=== PATIENT | female | born 1965 | race Caucasian/White ===

== ENCOUNTER → 2019-11-06 07:24 | Outpatient (CLI) | payer OTHER, SELFPAY ==
--- NOTE | ~2019-11-06 | MM_ITS ---
EXAMINATION: MM screening mary BI w javi HISTORY: Screening mammogram, family history of breast cancer in her mother. TECHNIQUE: Craniocaudal and mediolateral oblique 3-D tomosynthesis images were obtained and synthetic 2-D images were generated. CAD analysis was submitted and interpreted. COMPARISON: 11/11/2018, 10/24/2018: 2218, 10/16/2016 BREAST PARENCHYMAL COMPOSITION: The breasts are heterogeneously dense, which may obscure small masses . FINDINGS: An asymmetry in the middle third of the inner left breast on the craniocaudal view has a st able appearance compared to multiple prior examinations, consistent with a benign finding. There is n o evidence of suspicious mass, calcification, or architectural distortion to suggest malignancy in ei ther breast. There has been no suspicious interval change. IMPRESSION: 1. No mammographic evidence of malignancy. 2. Recommend routine screening mammography in one year. BI-RADS Category 2: Benign finding(s). Reviewed, dictated and finalized at location A. ATIONS EXECUTIVE
== END ==
PROVIDERS: Visit Provider Obstetrics & Gynecology
DX: Z12.31 Encounter for screening mammogram for malignant neoplasm of breast (principal)
CPT/HCPCS: 77063; 77067

== ENCOUNTER → 2020-12-20 14:40 | Outpatient (CLI) | payer OTHER, SELFPAY ==
--- NOTE | ~2020-12-20 | MM_ITS ---
EXAMINATION: MM screening mary BI w javi HISTORY: Screening mammogram, family history of breast cancer in her mother. TECHNIQUE: Craniocaudal and mediolateral oblique 3-D tomosynthesis images were obtained and synthetic 2-D images were generated. CAD analysis was submitted and interpreted. COMPARISON: 11/06/2019, 11/11/2018, 10/24/2018, 10/22/2017 BREAST PARENCHYMAL COMPOSITION: The breasts are heterogeneously dense, which may obscure small masses . FINDINGS: There is no evidence of suspicious mass, calcification, or architectural distortion to sugg est malignancy in either breast. There has been no suspicious interval change. IMPRESSION: 1. No mammographic evidence of malignancy. 2. Recommend routine screening mammography in one year. BI-RADS Category 1: Negative Reviewed, dictated and finalized at location A.
== END ==
PROVIDERS: PCP Physician Assistant; Visit Provider Physician Assistant
DX: Z12.31 Encounter for screening mammogram for malignant neoplasm of breast (principal)
CPT/HCPCS: 77063; 77067

== ENCOUNTER → 2020-12-22 15:06 | Outpatient (CLI) | payer OTHER, SELFPAY ==
--- NOTE | ~2020-12-22 | XR_ITS ---
XR knee RT min 4V DATE: 12/22/2020 16:15 INDICATION: Right knee pain TECHNIQUE: 4 views including sunrise and standing AP and PA views COMPARISON: 01/16/2011 FINDINGS: Mild suprapatellar knee joint effusion. Superior pole patellar enthesopathy at the quadriceps tendon insertion. No fracture or dislocation, periosteal reaction or bone destruction. There is mild loss of joint space height at the medial compartment. No radiopaque intra-articular loo se body or chondrocalcinosis. IMPRESSION: Mild loss of height of medial compartment joint space Mild suprapatellar knee joint effusion Reviewed, dictated and finalized at location B.
== END ==
PROVIDERS: PCP Physician Assistant; Visit Provider Physician Assistant
DX: M25.461 Effusion, right knee (principal)
CPT/HCPCS: 73564

== ENCOUNTER → 2021-01-11 14:37 | Outpatient (CLI) | payer OTHER, SELFPAY ==
--- NOTE | ~2021-01-11 | XR_ITS ---
XR hand LT 2V DATE: 01/11/2021 14:50 INDICATION: Hand pain TECHNIQUE: AP and lateral views COMPARISON: None FINDINGS: Osteoarthritic changes are noted involving primarily the interphalangeal joints. No fracture, dislocation, periosteal reaction or bone destruction. No erosive change or chondrocalcin osis is evident. 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
--- NOTE | ~2021-01-11 | XR_ITS ---
XR hand RT 2V DATE: 01/11/2021 14:50 INDICATION: Hand pain TECHNIQUE: AP and lateral views COMPARISON: 09/17/2015 right hand FINDINGS: No fracture or dislocation, periosteal reaction or bone destruction. There are osteoarthrit ic changes of mild to moderate degree involving the interphalangeal joints. No erosive change or chondrocalcinosis. 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
== END ==
PROVIDERS: Visit Provider Internal Medicine Rheumatology
DX: M79.642 Pain in left hand (principal); M79.641 Pain in right hand; M19.042 Primary osteoarthritis, left hand; M19.041 Primary osteoarthritis, right hand
CPT/HCPCS: 73120

== ENCOUNTER 2021-02-14 13:39 | Outpatient (CLI) | payer OTHER, SELFPAY ==
--- NOTE | ~2021-02-14 | MR_ITS ---
EXAMINATION: MR lumbar spine wo con DATE: 02/14/2021 14:43 INDICATION: Low back pain. TECHNIQUE: Magnetic resonance imaging (MRI) of the lumbar spine was performed without intravenous con trast. Sequences included sagittal T2-weighted FSE, sagittal T2-weighted FS FSE, sagittal T1-weighted FSE, and axial T2-weighted FSE. COMPARISON: None FINDINGS: There is 3 mm anterolisthesis of L4 on L5 and 5 mm retrolisthesis of L5 on S1. There is mil d chronic anterior wedging of T11 and T12 vertebral bodies. There is mildly decreased disc height at L4-L5 and moderately decreased disc height at L5-S1 with endplate remodeling. There is a 7 mm cyst in left kidney. The following disc levels are specifically discussed: L1-L2: The disc does not extend beyond the endplate margin. There is moderate bilateral facet joint o steoarthritis. There is no neural foraminal stenosis. There is no central canal stenosis. L2-L3: There is a left foraminal protrusion. There is mild bilateral facet joint osteoarthritis. Ther e is mild left neural foraminal stenosis. There is no central canal stenosis. L3-L4: The disc is bulging and has an annular fissure. There is severe bilateral facet joint osteoart hritis. There is mild bilateral neural foraminal stenosis. There is mild central canal stenosis. L4-L5: The disc is bulging. There is severe bilateral facet joint osteoarthritis. There is mild bilat eral neural foraminal stenosis. There is mild central canal stenosis. L5-S1: The disc is bulging and has an annular fissure. The disc abuts the bilateral S1 nerve roots. T here is moderate bilateral facet joint osteoarthritis. There is moderate bilateral neural foraminal s tenosis. There is mild central canal stenosis. IMPRESSION: 1. Moderate lower lumbar spondylosis. Reviewed, dictated and finalized at location A.
--- NOTE | ~2021-02-14 | MR_ITS ---
EXAMINATION: MR cervical spine wo con DATE: 02/14/2021 14:42 INDICATION: Neck pain. TECHNIQUE: Magnetic resonance imaging (MRI) of the cervical spine was performed without intravenous c ontrast. Sequences included sagittal T2-weighted FSE, sagittal STIR FSE, sagittal T1-weighted FSE, ax ial MERGE, and axial T2-weighted FSE. COMPARISON: Cervical spine MRI 03/18/2008 FINDINGS: Bone alignment is normal. Vertebral body heights and intervertebral disc heights are normal . The spinal cord signal intensity is normal. The following disc levels are specifically discussed: C2-C3: The disc does not extend beyond the endplate margin. There is no uncovertebral joint osteoarth ritis. There is ankylosis of left facet joint with mild hypertrophy. There is no neural foraminal arielle nosis. There is no central canal stenosis. C3-C4: The disc does not extend beyond the endplate margin. There is mild bilateral uncovertebral roddy nt osteoarthritis. There is severe bilateral facet joint osteoarthritis. There is mild bilateral neur al foraminal stenosis. There is no central canal stenosis. C4-C5: The disc does not extend beyond the endplate margin. There is no uncovertebral joint osteoarth ritis. There is ankylosis of the facet joints with mild hypertrophy. There is no neural foraminal arielle nosis. There is no central canal stenosis. C5-C6: The disc does not extend beyond the endplate margin. There is no uncovertebral joint osteoarth ritis. There is severe bilateral facet joint osteoarthritis. There is mild bilateral neural foraminal stenosis. There is no central canal stenosis. C6-C7: The disc does not extend beyond the endplate margin. There is no uncovertebral joint osteoarth ritis. There is severe bilateral facet joint osteoarthritis. There is mild bilateral neural foraminal stenosis. There is no central canal stenosis. C7-T1: The disc does not extend beyond the endplate margin. There is no uncovertebral joint osteoarth ritis. There is severe bilateral facet joint osteoarthritis. There is mild bilateral neural foraminal stenosis. There is no central canal stenosis. IMPRESSION: 1. Mild cervical spondylosis. Reviewed, dictated and finalized at location A.
== END 2021-02-14 13:40 ==
PROVIDERS: PCP Physician Assistant; Visit Provider Internal Medicine Rheumatology
DX: M54.5 Low back pain (principal); M47.812 Spondylosis without myelopathy or radiculopathy, cervical region; M47.816 Spondylosis without myelopathy or radiculopathy, lumbar region
CPT/HCPCS: 72141; 72148

== ENCOUNTER 2021-05-14 08:19 | Emergency (ER) | payer OTHER, SELFPAY ==
--- NOTE | ~2021-05-14 | XR_ITS ---
EXAMINATION: XR knee LT 3V DATE: 05/14/2021 08:42 INDICATION: Left knee pain TECHNIQUE: Three views of the left knee were obtained. COMPARISON: None. FINDINGS: Alignment is normal. No fracture or osteochondral lesion. There is mild tricompartmental os teoarthritis characterized by tiny marginal osteophytes. No joint effusion/synovitis. Soft tissues a re unremarkable. IMPRESSION: 1. No acute osseous abnormality. Reviewed, dictated and finalized at location A.
[2021-05-14 08:22] VITALS: BP 133/102; PULSE 67; RESP 18; TEMP 37; O2SAT 100
--- NOTE | 2021-05-14 10:20 | ED.LOWEXIN ---
HPI - Extremity Injury (Lower) General Chief Complaint: Extremity Injury, Lower Stated Complaint: left knee pain Time Seen by Provider: 05/14/21 09:46 Source: patient, RN notes reviewed and old records reviewed Mode of arrival: ambulatory Limitations: no limitations History of Present Illness HPI Narrative: Patient is 56 years old white female complaining of left knee pain started yesterday at work. Patient denies any trauma or fall. Patient have history of right knee complication and chronic pain with intermittent cortisone injection. Patient works depends on long hours of standing. Patient denies any fever, chills, nausea, vomiting, shortness of breath or chest pain. Related Data Allergies Allergy/AdvReac Type Severity Reaction Status Date / Time BEE STINGS Allergy Unknown Unknown Uncoded 05/14/21 09:10 Review of Systems Review of Systems: CONSTITUTIONAL: Denies fever, chills, or sweats. EYES: Denies visual changes, redness, or discharge. ENT: Denies rhinorrhea, congestion, sore throat, or otalgia. CARDIOVASCULAR: Denies chest pain, palpitations, or edema. RESPIRATORY: Denies cough or dyspnea. GASTROINTESTINAL: Denies abdominal pain, nausea, vomiting, or diarrhea. GENITOURINARY: Denies dysuria or hematuria. SKIN: Denies rash or itching. MUSCULOSKELETAL: Denies back pain, joint pain, or myalgia. NEUROLOGIC: Denies headache, numbness, or weakness. PSYCHIATRIC: Denies anxiety or depression. PMFSH Family History Family History Sibling Family history of lupus erythematosus Mother Family history of heart disease in male family member before age 55 Father Family history of heart disease in male family member before age 55 Social History Social History Smoking status: Never smoker Alcohol intake: current Exam Narrative: General appearance: Well-developed, well-nourished Skin: Normal color Chest and respiratory: Airway patent, no respiratory distress, no accessory muscle use Heart: Regular rate/rhythm Vascular: Normal peripheral pulses, normal capillary refill. Musculoskeletal: Normal range of motion, left knee showed no swelling, no redness, no warmth, no deformity, no localized tenderness Neurologic: Alert and oriented ?3, [employer] is normal as tested, no gross motor deficit Course Course Emergency Course: Improving Vital Signs Vital signs: Vital Signs Temperature 37.0 C 05/14/21 08:22 Pulse Rate 67 05/14/21 08:22 Respiratory Rate 18 05/14/21 08:22 Blood Pressure 133/102 H 05/14/21 08:22 Pulse Oximetry 100 05/14/21 08:22 Temperature 37.0 C 05/14/21 08:22 Pulse Rate 67 05/14/21 08:22 Respiratory Rate 18 05/14/21 08:22 Blood Pressure 133/102 H 05/14/21 08:22 Pulse Oximetry 100 05/14/21 08:22 MDM - Extremity Injury (Lower) MDM Narrative Medical decision making narrative: Nontraumatic left knee pain, osteoarthritis is my concern. Differential Diagnosis Differential diagnosis: Likely other (Osteoarthritis, sprain/strain) Critical Care Time Critical Care Time Critical Care Time: No Discharge Plan Discharge Clinical Impression: Knee pain, left Patient Disposition: Home, Self-Care Condition: Stable Instructions: Antibiotic Form, Knee Pain (ED), Arthralgia (ED) Additional Instructions: Return if symptoms are worsening , call your family physician for appointment, take Tylenol as as needed for aches and pain, continue home medications., Prescriptions: New diclofenac sodium 1 % gel 2 g topical QID Qty: 100 RF: 0 Follow-up/Referrals: Anuj,MELISSA Coulter [Primary [facility]
[2021-05-14] MEDS: HYDROcodone/acetaminophen (*CRX) 5-325 MG TABLET 1 TAB PO (10:35)
[2021-05-14] MEDS: KETOROLAC (*BKC) 60 MG/2 ML VIAL IM (10:35)
[2021-05-14 11:00] VITALS: BP 132/89; PULSE 80; RESP 20; O2SAT 99
== END 2021-05-14 11:00 | disposition home or self-care (01) ==
PROVIDERS: Emergency Provider Emergency Medicine; PCP Physician Assistant
DX: M25.562 Pain in left knee (principal)
CPT/HCPCS: 73562; 96372; 99283; A9270; J1885

== ENCOUNTER → 2021-05-30 13:53 | Outpatient (CLI) | payer OTHER, SELFPAY ==
--- NOTE | ~2021-05-30 | MR_ITS ---
EXAMINATION: MR knee RT wo con DATE: 05/30/2021 14:31 INDICATION: Right knee pain TECHNIQUE: Magnetic resonance imaging (MRI) of the right knee was performed without intravenous contr ast. Sequences included coronal PD-weighted FSE, coronal PD-weighted FS FSE, sagittal T2-weighted FS E, sagittal PD-weighted FS FSE and axial PD weighted fat saturated FSE. COMPARISON: Right knee radiograph dated 12/22/2020 FINDINGS: Medial compartment: Full-thickness radial tear/avulsion at the posterior root of the medial meniscus. There is a longitud inal horizontal tear extending to near the free edge of the posterior horn and posterior body of the medial meniscus. There is marrow edema surrounding a linear low signal intensity subarticular impacti on fracture line with flattening of the overlying articular cortex at the junction of the anterior to central weightbearing medial femoral condyle which is new since prior radiographs. There is chondral ulceration and partial-thickness chondral fissuring at the anterior and central weightbearing medial femoral condyle. Additional partial thickness chondral ulceration which appears to involve greater t mccartney 50% the cartilage thickness but with smooth chondral surface and without degenerative subchondral changes at the posterior central aspect of the medial tibial plateau. Lateral compartment: Lateral meniscus is normal. Articular cartilage is normal. Patellofemoral compartment: Partial-thickness patellar chondral ulceration without degenerative subchondral changes centered joann g the apical ridge. Additional more extensive chondral ulceration involving the medial two thirds of the lateral trochlea, the trochlear groove and medial trochlea with mild underlying cortical irregula rity at the inferior aspect of the medial trochlea. Ligaments and tendons: Anterior and posterior cruciate ligaments are normal. The medial collateral ligament and fibular nicholas ateral ligament complex are normal. The extensor mechanism is normal. The visualized medial and later al hamstring tendons as well as the iliotibial band are normal. Fluid: Moderate-sized right knee joint effusion with small amount of fluid tracking along the popliteal rece ss. No loose osteochondral bodies identified. IMPRESSION: 1. Small subarticular impaction fracture with subtle flattening of the articular cortex at the anteri or weightbearing medial femoral condyle. 2. Complex medial meniscal tear including a full-thickness radial tear/avulsion at the posterior root and horizontal longitudinal tear of the posterior horn and posterior body. 3. Mild osteoarthritis with regions of moderate high-grade chondromalacia in the medial compartment a nd moderate and high-grade chondral malacia the patellofemoral compartment. 4. Moderate sized glenohumeral joint effusion. Reviewed, dictated and finalized at location A. IMPRESSION: 1. Small subarticular impaction fracture with subtle flattening of the articula r cortex at the anterior weightbearing medial femoral condyle. 2. Complex medial meniscal tear including a full-thickness radial tear/avulsion at the posterior root and horizontal longitudinal tear of the posterior horn a nd posterior body. 3. Mild osteoarthritis with regions of moderate high-grade chondromalacia in th e medial compartment and moderate and high-grade chondral malacia the patellofe moral compartment. 4. Moderate sized glenohumeral joint effusion.
== END ==
PROVIDERS: Visit Provider Orthopaedic Surgery
DX: M25.561 Pain in right knee (principal); S72.434A Nondisplaced fracture of medial condyle of right femur, initial encounter for closed fracture; S83.231A Complex tear of medial meniscus, current injury, right knee, initial encounter; M17.11 Unilateral primary osteoarthritis, right knee; M22.41 Chondromalacia patellae, right knee; M25.461 Effusion, right knee
CPT/HCPCS: 73721

== ENCOUNTER → 2022-02-06 14:21 | Outpatient (CLI) | payer OTHER, SELFPAY ==
--- NOTE | ~2022-02-06 | MR_ITS ---
EXAMINATION: MR knee LT wo con DATE: 02/06/2022 14:50 INDICATION: Left knee pain TECHNIQUE: Magnetic resonance imaging (MRI) of the left knee was performed x-ray left knee 01/19/2022 intravenous contrast. Sequences included axial PD-weighted FS FSE, coronal PD-weighted FSE and PD-laurita ghted FS FSE, sagittal PD-weighted FSE, and sagittal T2-weighted FS FSE. COMPARISON: None. FINDINGS: Medial compartment: Mild diffuse cartilage thinning. Mild osteophytosis. Apical tear of the medial meniscus at the juncti on of the body and posterior horn. Femoral and tibial subchondral sclerosis. Lateral compartment: Mild diffuse cartilage thinning. Mild osteophytosis. Meniscus intact. Patellofemoral compartment: Mild cartilage thinning. Mild osteophytosis. Extensor mechanism and retinacula are intact. Ligaments and tendons: ACL, PCL, LCL, and MCL are intact. Medial tendons, IT band, biceps femoris tendon are intact. Fluid: No significant fluid collections. Osseous/other: Marrow signal is benign and homogenous. IMPRESSION: 1. Apical tear at the junction of the body and posterior horn, medial meniscus. 2. Mild tricompartmental osteoarthritis. Reviewed, dictated and finalized at location K.
== END ==
PROVIDERS: PCP Physician Assistant; Visit Provider Orthopaedic Surgery
DX: M25.562 Pain in left knee (principal); S83.242A Other tear of medial meniscus, current injury, left knee, initial encounter; M17.12 Unilateral primary osteoarthritis, left knee
CPT/HCPCS: 73721

== ENCOUNTER 2022-06-30 00:39 | Day surgery (SDC) | payer OTHER, SELFPAY ==
[2022-06-23 14:30] VITALS: BMI 29.2
--- NOTE | 2022-06-23 14:37 | PC.NURSE ---
Report to the Outpatient Waiting Room, entrance under the green pavilion located off [facility], at time 0830 on date 06/30/22. OR Time: 1030. Time changes happen often and if your time is changed the preop area will call you the afternoon before. - You and your visitor will be asked to self-screen and do not enter if you have any COVID symptoms. - Only one visitor and NO children visitors are allowed at this time. - The patient visitor is requested to leave or wait in car when not with patient due to restrictions. - A mask is required within the hospital. Patients may have clear liquids (water, carbonated beverages, clear teas, apple juice) until 3 hours prior to surgery with a maximum of 20 ounces. - No food from midnight until time of surgery Take the following medications with a SIP of water the morning of surgery: NONE Medications to discontinue per physician: JACEK Date to take last dose: PER DR. PERALTA Please no make-up, nail israeli, hairspray, perfume, deodorant, or body powder the day of surgery. No jewelry (including any body piercings) or valuables the day of surgery, leave them at home. Please take a shower or bath the night before, or the morning of, surgery with an antibacterial soap. Wear comfortable, loose fitting clothing. - Jewelry must be removed prior to entering the operating room. Rings and piercings that are not removed may be cut off. - The hospital will not accept responsibility for valuables. - Please leave all valuables, including medications, at home the day of surgery. If you are going home after surgery, a licensed bicycle taxi driver must drive you home. - NO public transportation without another adult. - We recommend that an adult stay with you for 24 hours following discharge. - We also recommend that you do not drive, make important decision, drink alcoholic beverages, or take any drugs that were not prescribed by your health care provider for at least 24 hours after your discharge time. Follow any additional instructions given to you from your surgeon. If you or anyone in your household have experienced Covid symptoms in the past week, please notify your surgeon or the nurse liaison at the phone number below for possible testing. Telephone instructions given to PT - JAMA KAHN and asked if any additional questions and then verbalized understanding. Patient advised to call surgeon office or pre surgery nurse liaison [phone] if any additional questions.
[2022-06-30] VITALS (10 sets, daily range): BP systolic 124–164; BP diastolic 69–95; PULSE 63–79; RESP 9–16; TEMP 36.8–37; O2SAT 95–100
--- NOTE | 2022-06-30 07:14 | WPDHPUPDATE1 ---
History and Physical Update Update Date/Time: 06/30/22 07:14 History and Physical has been reviewed, including an updated exam of the patient. There are NO changes in the patient's condition. Risks, benefits, and alternatives have been discussed and questions answered. Patient agrees to proceed with procedure.
[2022-06-30] MEDS: ACETAMINOPHEN 500 MG TABLET 1000 MG PO (08:39)
[2022-06-30] MEDS: CELECOXIB 200 MG CAPSULE PO (08:39)
[2022-06-30] MEDS: LACTATED RINGERS 1,000 ML 30 ML IV CONT ×2 (08:59→11:53)
--- NOTE | 2022-06-30 09:40 | WPDANESEPPF ---
Anes - Initial Pre Proc Eval Procedure: Operation Date: 06/30/22 10:30 Proposed Procedures p Left Knee Arthroscopy - Shalom Wills MD Date/Time: 06/30/22 09:40 Surgeon: Shalom Wills MD Pre Op Diagnosis: left knee medial meniscus tear Patient Data Age: 57 Gender: F Height: 1.57 m Weight: 72.2 kg Last Vital Signs Temp 37.0 C 06/30/22 08:48 Pulse 72 06/30/22 08:48 Resp 16 06/30/22 08:48 BP 153/86 H 06/30/22 08:48 Pulse Ox 100 06/30/22 08:48 O2 Del Method Room Air 06/30/22 08:48 Allergies Allergy/AdvReac Type Severity Reaction Status Date / Time No Known Allergies Allergy Verified 06/30/22 08:36 Home Medications Medication Instructions Recorded Confirmed Type naproxen sodium 220 mg tablet 220 mg PO BID PRN Pain 06/23/22 06/30/22 History (Aleve) Patient hx anesthesia problems: post op nausea/vomiting Family hx anesthesia problems: none Results Review: All pre-operative results and documents have been reviewed as part of the pre-operative evaluation. [facility] Past Medical History Medical History Left knee pain Rheumatoid arthritis Surgical History Surgical History H/O arthroscopy of knee Right H/O arthroscopy of left knee Family History Family History Sibling Family history of lupus erythematosus Mother Family history of heart disease in male family member before age 55 Father Family history of heart disease in male family member before age 55 Social History Social History Smoking status: Never smoker Alcohol intake: never Substance use: never Substance use type: does not use Living arrangements: with family Gender identity (if verbalized by the patient): Female Spiritual care concerns: No Anes - Eval Final PreProcedure Day of Procedure 06/30/22 09:40 Patient weight: overweight Heart: regular rate and rhythm Lungs: clear to auscultation Airway: Mallampati scale class II Neurological: alert and oriented Last oral intake: >/= 8 hours ASA classification: II Emergent: no Anesthetic plan: proceed Anesthesia type and monitoring: general LMA and standard monitoring Results Review: All pre-operative results and documents have been reviewed as part of the pre-operative evaluation. Informed Consent: The patient's anesthetic plan and its attendant risks and benefits were discussed with the patient/family/POA. Questions were solicited and answers provided to the satisfaction of the patient/family/POA.
[2022-06-30] MEDS: SCOPOLAMINE 1.5 MG PATCH TRANSDERM (10:36)
[2022-06-30] MEDS: ceFAZolin 2 GM/D5W 50 ML 2 GM/50 ML BAG IVPB (10:39)
[2022-06-30] MEDS: methylPREDNISolone ACETATE 80 MG/ML VIAL IM (11:35)
--- NOTE | 2022-06-30 12:12 | W.PM.PROC2 ---
Procedure Note - Detailed Date of Procedure 06/30/22 Pre-op Diagnosis left knee medial meniscus tear Post-op Diagnosis Same Procedure Performed LEFT KNEE SCOPE Surgeon Shalom Wills MD Anesthesia General Description of Procedure PATIENT WAS TAKEN TO THE OR. LEFT LEG WAS PREPPED AND DRAPED STERILE. TROCARS WERE PLACED IN THE USUAL FASHION. CAMERA WAS INTRODUCED. THERE WAS SEVERE CHONDROMALACIA TO THE TROCHLEA AND PATELLA. THERE WAS A LOT OF SYNOVITIS IN ALL COMPARTMENTS. THE MEDIAL COMPARTMENT SHOWED CHONDROMALACIA TO THE MEDIAL FEMORAL CONDYLE. A SHAVER WAS USED TO PREFORM A CHONDROPLASTY. THERE WAS A COMPLEX MEDIAL MENISCUS TEAR. THE TEAR WAS RESECTED WITH A BITER AND A SHAVER DOWN TO A SMOOTH BASE. THE ACL WAS INTACT. THE LATERAL MENISCUS WAS NOT TORN. THE LAT COMPARTMENT HAD MINIMAL CHONDROMALACIA. CHONDROPLASTY WAS PREFORMED. A SYNOVECTOMY WAS PREFORMED WELL. THE PATELLO FEMORAL JOINT UNDERWENT CHONDROPLASTY. THERE WAS GRADE 3 CHONDROMALACIA IN A LARGE PART OF THE TROCHLEA AND PART OF THE PATELLA. SYNOVECTOMY WAS PREFORMED IN THE SUPERIOR MEDIAL COMPARTMENT. THE WOUNDS WERE APPROXIMATED WITH 4.0 NYLON. STERILE DRESSING WAS APPLIED. PATIENT WAS EXTUBATED. Estimated Blood Loss -5.0 Complications No immediate complications Condition Stable Disposition PACU
[2022-06-30] MEDS: ONDANSETRON INJ 4 MG/2 ML VIAL IV PUSH (13:40)
== END 2022-06-30 14:25 | disposition home or self-care (01) ==
PROVIDERS: PCP Physician Assistant; Visit Provider Orthopaedic Surgery
PROC: (CPT 29870; principal; 2022-06-30 10:30)
DX: S83.242A Other tear of medial meniscus, current injury, left knee, initial encounter (principal); G89.29 Other chronic pain; M65.9 Synovitis and tenosynovitis, unspecified; M22.42 Chondromalacia patellae, left knee
CPT/HCPCS: 29881; A9270; J0690; J1040; J1100; J2250; J2405; J2704; J3010; J7120

== ENCOUNTER 2023-09-27 01:12 | Day surgery (SDC) | payer OTHER, SELFPAY ==
[2023-09-14 13:58] VITALS: BMI 29.3
--- NOTE | 2023-09-25 12:20 | SUR.PREOP ---
Patient called regarding upcoming procedure. Reviewed preop instructions, appointment times, and procedure prep.
--- NOTE | 2023-09-27 09:50 | PM.HPGS ---
History of Present Illness History of Present Illness Consent: Risks, benefits, and alternatives have been discussed and questions answered. Patient agrees to proceed with procedure. Chief complaint: GERD Narrative: Shannen An is a 58 year old female Presents for EGD. Patient states that she has a history of acid reflux and heartburn for many years. Previously this was controlled on AcipHex taken daily. Her insurance no longer covers this. Recently she has begun to take famotidine 40mg p.o. p.r.n.. Perhaps 4 times a week. She states symptoms of acid reflux may occur during the day or at night. Occasionally food will catch in the mid substernal portion of the chest. Patient denies any weight loss or bleeding. Family history is noncontributory. Review of Systems Review of Systems: Review of systems noncontributory. [facility] Past Medical History Medical History Left knee pain Rheumatoid arthritis Surgical History Surgical History H/O arthroscopy of knee Right H/O arthroscopy of left knee Family History Family History Sibling Family history of lupus erythematosus Mother Family history of heart disease in male family member before age 55 Father Family history of heart disease in male family member before age 55 Social History Social History Smoking status: Never smoker Alcohol intake: current Alcohol use details: rare occasional Substance use: never Substance use type: does not use Living arrangements: with family Gender identity (if verbalized by the patient): Female Spiritual care concerns: No Meds Home Medications and Allergies Home Medications Medication Instructions Recorded Confirmed Type naproxen sodium 220 mg tablet 220 mg PO BID PRN Pain 06/23/22 09/14/23 History (Aleve) Allergies Allergy/AdvReac Type Severity Reaction Status Date / Time No Known Allergies Allergy Verified 09/14/23 14:10 Exam Narrative: Physical exam reveals patient to be alert. Vital signs stable. HEENT exam is unremarkable. Patient is anicteric. Lungs are clear to auscultation and percussion. Heart is without murmur or extra sounds. Abdomen bowel sounds are present soft nontender with no organomegaly. Digital external rectal exam is normal. Assessment and Plan Assessment and plan (1) GERD (gastroesophageal reflux disease): Code(s): K21.9 - Gastro-esophageal reflux disease without esophagitis Status: Acute Assessment and Plan: Patient complains of heartburn and occasional dysphagia. Symptoms most consistent with acid reflux. Plan for EGD to assess more thoroughly. She may be required dilatation if stricture is encountered. Further recommendations may be given after endoscopy.
[2023-09-27 09:56] VITALS: BP 142/83; PULSE 65; RESP 16; TEMP 36.8; O2SAT 100; BMI 29.4
[2023-09-27] MEDS: LACTATED RINGERS 1,000 ML 150 ML IV CONT (10:07)
--- NOTE | 2023-09-27 10:30 | WPDANESEPPF ---
Anes - Initial Pre Proc Eval Procedure: Operation Date: 09/27/23 11:00 Proposed Procedures p Esophagogastroduodenoscopy - Etienne Garay MD Date/Time: 09/27/23 10:30 Surgeon: Etienne Garay MD Pre Op Diagnosis: GERD Patient Data Age: 58 Gender: F Height: 1.57 m Weight: 73 kg Last Vital Signs Temp 98.2 F 09/27/23 09:56 Pulse 65 09/27/23 09:56 Resp 16 09/27/23 09:56 BP 142/83 H 09/27/23 09:56 Pulse Ox 100 09/27/23 09:56 O2 Del Method Room Air 09/27/23 09:56 Allergies Allergy/AdvReac Type Severity Reaction Status Date / Time No Known Allergies Allergy Verified 09/27/23 09:55 Home Medications Medication Instructions Recorded Confirmed Type naproxen sodium 220 mg tablet 220 mg PO BID PRN Pain 06/23/22 09/27/23 History (Aleve) Patient hx anesthesia problems: none Family hx anesthesia problems: none Results Review: All pre-operative results and documents have been reviewed as part of the pre-operative evaluation. [facility] Past Medical History Medical History Left knee pain Rheumatoid arthritis Surgical History Surgical History H/O arthroscopy of knee Right H/O arthroscopy of left knee Family History Family History Sibling Family history of lupus erythematosus Mother Family history of heart disease in male family member before age 55 Father Family history of heart disease in male family member before age 55 Social History Social History Smoking status: Never smoker Alcohol intake: current Alcohol use details: rare occasional Substance use: never Substance use type: does not use Living arrangements: with family Gender identity (if verbalized by the patient): Female Spiritual care concerns: No Anes - Eval Final PreProcedure Day of Procedure 09/27/23 10:30 Patient weight: normal Heart: regular rate and rhythm Lungs: clear to auscultation Airway: Mallampati scale class II Neurological: alert and oriented Last oral intake: >/= 8 hours ASA classification: II Emergent: no Anesthetic plan: proceed Anesthesia type and monitoring: general GIVS and standard monitoring Results Review: All pre-operative results and documents have been reviewed as part of the pre-operative evaluation. Informed Consent: The patient's anesthetic plan and its attendant risks and benefits were discussed with the patient/family/POA. Questions were solicited and answers provided to the satisfaction of the patient/family/POA.
[2023-09-27 10:58] VITALS: BP 117/74; PULSE 64; RESP 20; O2SAT 97
[2023-09-27 11:08] VITALS: BP 143/86; PULSE 56; RESP 20; O2SAT 100
[2023-09-27 11:18] VITALS: BP 133/84; PULSE 60; RESP 20; O2SAT 100
== END 2023-09-27 11:31 | disposition home or self-care (01) ==
PROVIDERS: PCP Physician Assistant; Visit Provider Internal Medicine Gastroenterology
PROC: 0DJ08ZZ Inspection of Upper Intestinal Tract, Via Natural or Artificial Opening Endoscopic (ICD-10-PCS; CPT 43235; principal; 2023-09-27 11:00)
DX: K21.00 Gastro-esophageal reflux disease with esophagitis, without bleeding (principal); Q39.4 Esophageal web; M06.9 Rheumatoid arthritis, unspecified
CPT/HCPCS: 43450; J2704; J7120

== ENCOUNTER 2023-11-15 13:49 | Outpatient (CLI) | payer OTHER, SELFPAY ==
--- NOTE | ~2023-11-15 | MM_ITS ---
EXAMINATION: MM screening mary BI w javi HISTORY: Screening mammogram, family history of breast cancer in her mother. TECHNIQUE: Craniocaudal and mediolateral oblique 3-D tomosynthesis images were obtained and synthetic 2-D images were generated. CAD analysis was submitted and interpreted. COMPARISON: 12/20/2020, 11/06/2019, 11/11/2018 BREAST PARENCHYMAL COMPOSITION:Dense: The breasts are heterogeneously dense, which may obscure small masses. FINDINGS: No suspicious mass, calcification, or architectural distortion are identified in either teofilo ast to suggest malignancy. There has been no suspicious interval change. IMPRESSION: No mammographic evidence of malignancy. Recommend routine screening mammography in one year. BI-RADS Category 1: Negative Reviewed, dictated and finalized at location . GER EVENT
== END 2023-11-15 13:50 ==
PROVIDERS: PCP Physician Assistant; Visit Provider Physician Assistant
DX: Z12.31 Encounter for screening mammogram for malignant neoplasm of breast (principal)
CPT/HCPCS: 77063; 77067

== ENCOUNTER 2025-02-19 13:59 | Outpatient (CLI) | payer OTHER, SELFPAY ==
--- NOTE | ~2025-02-19 | XR_ITS ---
HISTORY: Dorsalgia COMPARISON: None TECHNIQUE: 3 views of the thoracic spine were performed FINDINGS: No acute compression fracture is present. Bone mineralization is age-appropriate. Moderate degenerative disease with osteophyte formation, disc space narrowing and endplate changes. IMPRESSION: Degenerative disease, without acute fracture. Reviewed, dictated and finalized at location A.
--- NOTE | ~2025-02-19 | XR_ITS ---
HISTORY: Pleurodynia COMPARISON: None TECHNIQUE: 3 views of the right ribs were performed along with a frontal view of the chest FINDINGS: No acute displaced fracture is appreciated. Bone mineralization is age-appropriate. The cardiomediastinal silhouette is unremarkable. The lungs are clear. IMPRESSION: No acute displaced right-sided rib fracture. No focal infiltrate or effusion. Reviewed, dictated and finalized at location A.
== END 2025-02-19 14:00 | disposition home or self-care (01) ==
LOC: MICIMG 14:03
PROVIDERS: PCP Physician Assistant; Visit Provider Physician Assistant
DX: M51.34 Other intervertebral disc degeneration, thoracic region (principal); R07.81 Pleurodynia; M54.9 Dorsalgia, unspecified
CPT/HCPCS: 71100; 72072

== ENCOUNTER 2025-03-16 15:45 | Outpatient (CLI) | payer OTHER, SELFPAY ==
--- NOTE | ~2025-03-16 | MM_ITS ---
EXAMINATION: MM screening mary BI w javi HISTORY: Screening TECHNIQUE: Craniocaudal and mediolateral oblique 3-D tomosynthesis images were obtained and synthetic 2-D images were generated. CAD analysis was submitted and interpreted. COMPARISON: Comparison to multiple prior studies sequentially, with oldest reviewed study dated 10/22. BREAST PARENCHYMAL COMPOSITION: Dense: The breasts are heterogeneously dense, which may obscure small masses FINDINGS: There is no evidence of suspicious mass, calcification, or architectural distortion to sugg est malignancy in either breast. There has been no suspicious interval change. IMPRESSION: 1. No mammographic evidence of malignancy. 2. Recommend routine screening mammography in one year. BI-RADS Category 1: Negative Reviewed, dictated and finalized at location A.
== END 2025-03-16 15:46 | disposition home or self-care (01) ==
LOC: MICIMG 15:46
PROVIDERS: PCP Obstetrics & Gynecology; Visit Provider Obstetrics & Gynecology
DX: Z12.31 Encounter for screening mammogram for malignant neoplasm of breast (principal)
CPT/HCPCS: 77063; 77067